=== PATIENT | male | born 1985 | race American Indian/Alaskan Native ===

== ENCOUNTER 2017-11-20 07:29 | Emergency (ER) | payer SELFPAY ==
[2017-11-20 07:40] VITALS: BP 133/94
== END 2017-11-20 08:01 | disposition left against medical advice (07) ==
LOC: ED 07:29
DX: R20.0 Anesthesia of skin (principal); Z53.21 Procedure and treatment not carried out due to patient leaving prior to being seen by health care provider
CPT/HCPCS: 93005; 93010